=== PATIENT | female | born 1990 | race Two or more races ===

== ENCOUNTER 2018-05-07 17:21 | Emergency (ER) | payer SELFPAY ==
[~2018-05-07] VITALS: Ht 165.1 cm; Wt 88.5 kg
[2018-05-07 17:36] VITALS: BP 141/109
[2018-05-07] MEDS ORDERED: IBUPROFEN 600 MG TAB PO ONE (18:45)
[2018-05-07] MEDS ORDERED: HYDROcodone-ACET 7.5/325MG TAB PO ONE (18:45)
== END 2018-05-07 19:04 | disposition home or self-care (01) ==
LOC: ER 17:21
DX: S50.01XA Contusion of right elbow, initial encounter (principal); W01.0XXA Fall on same level from slipping, tripping and stumbling without subsequent striking against object, initial encounter; Y93.E1 Activity, personal bathing and showering; Y99.8 Other external cause status; Y92.89 Other specified places as the place of occurrence of the external cause
CPT/HCPCS: 73080